=== PATIENT | male | born 1945 | race American Indian/Alaskan Native ===

== ENCOUNTER 2019-09-19 12:07 | Day surgery (SDC) | payer OTHER ==
[~2019-09-19 12:07] MED LIST: SODIUM CHLORIDE 0.9% 1000 ML 1,000 ML IV SCH
[2019-09-19] MEDS ORDERED: LIDOCAINE MPF (2%) 20 MG/1 ML VIAL 5 ML ONE (12:30)
--- NOTE | 2019-09-19 13:09 | Anesthesia Day of Surgery ---
Anesthesia Day of Surgery - Day of Surgery Patient Examined: Yes Patient H&P Reviewed: Yes Patient is NPO: Yes
--- NOTE | 2019-09-19 13:12 | Anesthesia Consultation ---
Anesthesia Consult and Med Hx Date of service: 09/19/19 - Airway Anesthetic Teeth Evaluation: Dentures, Edentulous ROM Head & Neck: Adequate Mental/Hyoid Distance: Adequate Mallampati Class: Class II Intubation Access Assessment: Good - Pre-Operative Health Status ASA Pre-Surgery Classification: ASA2 Proposed Anesthetic Plan: MAC - Pulmonary Hx Smoking: Yes - Cardiovascular System Hx Hypertension: Yes (Can climb two flights of stairs) - Central Nervous System Hx Psychiatric Problems: Yes (Depression)
[2019-09-19] MEDS ORDERED: PROPOFOL 200 MG/20 ML VIAL IV ONE ×2 (13:19)
[2019-09-19 14:39] VITALS: BP 120/78
--- NOTE | 2019-09-19 15:55 | Operative Report ---
Operative Report Operative Report: Procedure: Colonoscopy with multiple snare polypectomies, multiple polyp ablations multiple hot biopsy polypectomies. Attending physician: David Mendenhall M.D. Rn Enterostomal: David Mendenhall M.D. Indication: Patient is a 73-year-old male who presents for evaluation with a colonoscopy. Patient has a personal history of colon polyps and his last colonoscopy was 5 years ago. This surveillance colonoscopy serves to evaluate patient so that treatment may be directed based on the findings. Consent: Informed consent was obtained after advising the patient and family regarding nature of this procedure, its indications, potential benefits as well as possible complications including but not limited to bleeding perforation and adverse reaction to medication, infection as well as other cardiopulmonary complications. An informed written and verbal consent was then obtained after due opportunity was provided for questions and answers. Monitoring: Patient was monitored continuously with pulse oximetry and electrocardiographic recordings as well as blood pressure recordings. Vital signs remained stable throughout this procedure with no untoward events. Preoperative assessment: Patient was assessed immediately prior to this procedure for capacity to tolerate monitored anesthesia care and moderate sedation as well as general anesthesia. Patient's ASA classification is 2, Mallampati class is 2, Hyomental distance is 3. Instrument: Olympus video colonoscope.: CF-HQ 190L Medications: Propofol given intravenously in divided doses. For details please refer to anesthesia records. Description of procedure: Patient was placed in the left lateral decubitus position after achieving sedation, a digital rectal examination was performed following which the colonoscope was introduced into the anal verge and advanced to the cecum which was identified by the cecal valve, the appendiceal orifice, as well as by the cecal strap and direct transillumination. The colonoscope was subsequently withdrawn with careful inspection of all mucosal surfaces. Patient tolerated this procedure well and was subsequently taken to the recovery room. The following findings were noted. Findings: Coyote prep scale score was 6. Patient was presumed to have an adequate colonoscopic preparation. Patient had more than 20 polyps in the sigmoid colon which were variously removed by cold snare polypectomy, snare electrocautery, and hot biopsy. The sizes of polyps, range from about 6 mm to about 1.5 cm. All polyps were flat. Patient also had multiple diminutive polyps in the sigmoid colon that we ablated completely. She also had transverse colon polyp that was diminutive and was completely ablated. Patient had diminutive polyps in the rectum that were ablated. There were no other mucosal abnormalities seen. On the retroflexed view at the anal verge, patient had internal hemorrhoids. Impression: Multiple sigmoid colon polyps status post snare polypectomy. (Cold snare and snare cautery). Multiple sigmoid colon polyps status post ablation. Rectal polyp status post ablation. Transverse colon polyp status post ablation. Prominent internal hemorrhoids. Plan: Follow pathology report. High-fiber diet. Consider repeat colonoscopy in 3 years
--- NOTE | 2019-09-19 15:56 | Discharge Summary ---
Short Stay Discharge Plan Activity: advance as tolerated Weight Bearing Status: Weight Bear as Tolerated Diet: regular Additional Instructions: Post Sedation D/C Instructions When you return home you may resume your regular diet unless otherwise directed. -Go directly home from the hospital and rest quietly. You may resume normal activities tomorrow. -Do NOT drive, return to work, operate any machinery or make any important personal or business decisions today. -Do NOT drink any alcohol or take nerve or sleeping drugs. They add to the effects of the medicine still present in your body. -NO ASPIRIN OR NSAIDS NEXT 5 DAYS -CALL DR. PANG'S OFFICE FOR FOLLOW UP IN THE NEXT 1-2 WEEKS FOR RESULTS OF TODAY'S VISIT AND BIOPSY REPORTS Follow up with: JULIETA RUDD MD [Primary Care Provider] - 7 Days
--- NOTE | 2019-09-20 08:25 | Post Anesthesia Evaluation ---
- Post Anesthesia Evaluation Patient Participated: Yes Airway Patent: Yes Stable Respiratory Function: Yes Nausea/Vomiting: No Temp > 96.8F: Yes Pain Manageable: Yes Adequeate Hydration: Yes Anesthesia Complications: No Block Receding Appropriately: Not Applicable Patient on Ventilator: No
== END 2019-09-19 12:08 | disposition home or self-care (01) ==
LOC: GIO 12:07
PROVIDERS: ATTEND Internal Medicine Gastroenterology
DX: Z12.11 Encounter for screening for malignant neoplasm of colon (principal); K62.1 Rectal polyp; K63.5 Polyp of colon; K64.8 Other hemorrhoids; F17.210 Nicotine dependence, cigarettes, uncomplicated; I10 Essential (primary) hypertension; F32.9 Major depressive disorder, single episode, unspecified; Z79.899 Other long term (current) drug therapy
CPT/HCPCS: 45385; 45388; 88305; J2704; J7030